=== PATIENT | female | born 1950 | race Two or more races ===

== ENCOUNTER 2018-01-26 07:56 | Outpatient (CLI) | payer OTHER | END 2018-01-26 08:07 | disposition home or self-care (01) | LOC: SONOGRAMA 07:56 | DX: E04.1 Nontoxic single thyroid nodule (principal) ==

== ENCOUNTER 2018-12-04 13:02 | Inpatient (IN) | payer OTHER ==
[~2018-12-04] VITALS: Ht 160 cm; Wt 87.0 kg
[2018-12-04] MEDS ORDERED: ADVAIR HFA 115/12 GM (13:26)
[2018-12-04] MEDS ORDERED: CLARITIN10 M2 (13:27)
[2018-12-04] MEDS ORDERED: BIOTIN1 MG (13:27)
[2018-12-04] MEDS ORDERED: PROBIOTIC1 EAC2 (13:28)
--- NOTE | 2018-12-04 13:28 | NUR ---
SE RECIBE PTE ALERTA Y ORIENTADA X3,ES REFERIDA POR EL DR.LUIS JOYCE ,POR PALPITACIONES .MAREOS,CEFALEA ,REFIERE QUE ESTABA DE VIAJE Y NO HABIA PODIDO VENIR A LA STACIA DE ER.
--- NOTE | 2018-12-04 14:22 | NUR ---
PACIENTE EVALUADA POR DRA YEAGER. MR CORDERO ORIENTA A PACIENTE SOBRE ORDENES MEDICAS. COLECTA MUESTRAS DE LABORATORIO ORDENADAS. CANALIZA PACIENTE Y COLOCA SALINE LOCK; CANALIZACION DONNA DE EDEMA Y/O ENROJECIMIENTO. PACIENTE EN ESPERA DE CONSULTA CON DR Niels JOYCE Y DR Nils CABRERA. PACIENTE PERMANECE CONECTADA A MONITOR CARDIACO Y OXIMETRIA CON ALARMAS AUDIBLES. SE MANTIENE BAJO OBSERVACION POR CAMBIOS. >>PENDIENTE CT HEAD Y XRAYS.
--- NOTE | 2018-12-04 15:20 | NUR ---
SE RECIBE PTE ALERTA Y ORIENTADA EN LAS 3 ESFERAS EN CAMA CON BARANDAS ELEVADAS POR SEGURIDAD. BUEN PATRON RESPIRATORIO. PIEL TIBIA AL TACTO. CONECTADA A MONITOR CARDIACO Y OXIMETRIA DE PULSO. RECIBIENDO SULFATO DE MAGNESIO 2GM IV POR H/L EN ANTEBRAZO HANSEL EL CUAL SE ENCUENTRA DONNA DE EDEMA Y ERITEMA. SE ORIENTA A PTE SOBRE CONTINUIDAD DE TX MEDICO. PTE REFIERE COMPRENDER. 1530- SE COLECTA MUESTRA DE LABORATORIO BAJO MEDIDAS ASEPTICAS Y SE ENVIA AL LABORATORIO. SE MANTIENE A PTE BAJO OBSERVACION.
--- NOTE | 2018-12-04 16:30 | NUR ---
SE LLLAMA A DR.LUIS JOYCE Y SE LE NOTIFICA QUE PTE PRESENTA PULSO EN 165/MIN CON RITMO IRREGULAR. DR.LUIS JOYCE ORDENA COLOCAR CANULA NASAL A 2LTS Y NOTIFICAR A DR.REYNEIRO CABRERA.
--- NOTE | 2018-12-04 17:15 | NUR ---
1640- SE LLAMA A Y NO CONTESTA. 1705- DR.LUIS JOYCE ORDENA ADMINISTRAR CARDIZEM 20MG IV CECELIA A BAJAR EN 15/MINS Y LOVENOX 60MG SUBCUTANEO. SE ADMINISTRAN MEDICAMENTOS BASILIO ORDEN MEDICA. SE MANTIENE BAJO OBSERVACION. 1715- SE LLAMA A DR.REYNEIRO CABRERA Y SE NOTIFICA QUE PTE PRESENTA PULSO EN 167/MIN CON RITMO IRREGULAR. NO INDICA TX MEDICO Y REFIERE QUE VENDRA A ER PARA EVALUAR LA PTE LO ANTES POSIBLE.
--- NOTE | 2018-12-04 17:33 | NUR ---
SE REALIZA EKG LUEGO DE ADMINISTRADO EL CECELIA DE CARDIZEM, PTE PRESENTA PULSO EN 90/MIN. SE NOTIFICA A DR.LUIS JOYCE Y SE LE INDICA QUE INDICO QUE VENDRA A EVALUAR LA PTE. DR.LUIS JOYCE INDICA ESPERAR LA EVALUACION MEDICA DE . SE MANTIENE BAJO OBSERVACION POR CAMBIOS EN CONDICION MEDICA.
--- NOTE | 2018-12-04 18:15 | NUR ---
SE NOTIFICA A DR.LUIS JOYCE QUE PTE CONTINUA CON EN 150/MIN CON RITMO IRREGULAR. DR.LUIS JOYCE INDICA NOTIFICAR A . 1819- SE NOTIFICA Y SE LE ENVIAN EKG DE LA PTE. 1834- SE NOTIFICA A DR.LUIS JOYCE LO SUCEDIDO. INDICA QUE SE COMUNICO CON EL Y QUE REALIZARA ADMISION DE LA PTE. INDICA QUE VENDRA PARA EVALUACION MEDICA.
[2018-12-06] MEDS ORDERED: FLECAINIDE ACET50 MG PO (09:54)
== END 2018-12-06 11:34 | disposition home or self-care (01) | DRG 309 ==
LOC: ER 13:02 → EDBD 13:12 → MEDJ 18:57
PROVIDERS: ADMIT Internal Medicine
PROC: BW28ZZZ Computerized Tomography (CT Scan) of Head (ICD-10-PCS; principal; 2018-12-04)
PROC: B246ZZZ Ultrasonography of Right and Left Heart (ICD-10-PCS; 2018-12-04)
PROC: B54PZZZ Ultrasonography of Bilateral Upper Extremity Veins (ICD-10-PCS; 2018-12-04)
PROC: 4A12X4Z Monitoring of Cardiac Electrical Activity, External Approach (ICD-10-PCS; 2018-12-04)
PROC: 4A033R1 Measurement of Arterial Saturation, Peripheral, Percutaneous Approach (ICD-10-PCS; 2018-12-04)
DX: I47.1 Supraventricular tachycardia (principal); I82.722 Chronic embolism and thrombosis of deep veins of left upper extremity; R42 Dizziness and giddiness; J01.80 Other acute sinusitis; Z79.01 Long term (current) use of anticoagulants